=== PATIENT | female | born 1960 | race Caucasian/White ===

== ENCOUNTER → 2020-11-06 | Day surgery (SDC) | payer OTHER ==
[2020-11-02 16:00] LABS: ANION GAP 14.3 mmol/L (8-16); CALCIUM 9.9 mg/dL (8.4-10.2); CREATININE, SERUM 1.11 mg/dL (0.57-1.11); POTASSIUM 4.3 mmol/L (3.5-5.1)
[~2020-11-06] MED LIST: ACETAMINOPHEN PO; ALBUTEROL SULF8.5 GM INH; AMOXICILLIN250 MG PO; ASPIR 8181 MG PO; ATORVASTATIN CA20 MG PO; BENEFIBER1 EAC1 PO; BUPIVACAINE HCL 0.5% INJ 30 ML VIAL INJ ONE; CLINDAMYCIN 600MG / 50ML 50 ML IV ONE; CUVITRU SC; DICYCLOMINE HCL20 MG PO; DYMISTA NASAL S23 GM; FLONASE; GABAPENTIN300 MG PO; HYDROXYZINE HCL25 MG PO; HYQVIA SC; LEVOCETIRIZINE D5 MG PO; LIDOCAINE HCL 2% LOCAL INJ 5 ML SDV VIAL INJ ONE; LINZESS PO; LOSARTAN POTAS100 MG PO; METFORMIN HCL500 MG PO; MIDAZOLAM HCL 2 MG/2 ML VIAL ONE; MONTELUKAST SOD10 MG PO; ONDANSETRON HCL INJ 2MG/ML 2ML 2 MG/ML VIAL ONE; OSTERA TABLET1 EACH OD; PANTOPRAZOLE SO40 MG PO; PRO AIR INH; PROPOFOL IV EMULSION 10 MG/ML 20 ML VIAL ONE; RANITIDINE HCL300 MG PO; SAVELLA50 MG PO; SEVOFLURANE INHAL SOLN 250 ML PEN BTL ONE; SPIRONOLACTONE25 MG PO; SYMBICORT 16010.2 GM INH; TIZANIDINE HCL4 M1 PO; TRULICITY1.5 MG/0.5 PO; ULTRACET TABLE1 EACH PO; VIT B12 PO; VITAMIN D310 MCG PO; ZETIA10 MG PO; ZOFRAN4 MG PO; [UNRECOGNIZED DRUG - OTHER] PO
[2020-11-06 08:30] VITALS: BP 119/78
== END | disposition home or self-care (01) ==
LOC: OR 05:23
PROVIDERS: ATTEND Plastic Surgery
DX: G56.01 Carpal tunnel syndrome, right upper limb (principal); M65.831 Other synovitis and tenosynovitis, right forearm; I10 Essential (primary) hypertension; J45.909 Unspecified asthma, uncomplicated; E11.9 Type 2 diabetes mellitus without complications; D84.89 Other immunodeficiencies; N39.0 Urinary tract infection, site not specified; M79.7 Fibromyalgia; Z01.810 Encounter for preprocedural cardiovascular examination; Z01.812 Encounter for preprocedural laboratory examination; Z20.828 Contact with and (suspected) exposure to other viral communicable diseases; Z79.82 Long term (current) use of aspirin; Z79.84 Long term (current) use of oral hypoglycemic drugs
CPT/HCPCS: 25115; 36415 ×2; 80048; 82948; 93005; J2001; J2250; J2405; J2704; U0002